=== PATIENT | male | born 1990 | race Caucasian/White ===

== ENCOUNTER 2017-04-06 17:00 | Emergency (ER) | payer SELFPAY ==
[~2017-04-06] VITALS: Ht 177.8 cm; Wt 77.1 kg
[~2017-04-06 17:00] MED LIST: AMOXIL500 MG PO; IBUPROFEN400 MG PO; KEFLEX 500MG.500 MG PO; NAPROXEN SODIU500 MG PO; NORCO 325 MG-51 TAB PO; PHENERGAN25 M3 PO; PREDNISONE 20MG20 MG PO; TYLENOL W/CODEI1 TA2 PO
--- NOTE | 2017-04-06 19:11 | Emergency Room Report ---
History of Present Illness Time Seen by [id number] Presenting Problem in Triage Pt arrived:Walked Presenting Problem:L ELBOW SWELLING AND PAIN, PT REPORTS PAIN IS WORSE WITH MOVEMENT. PT REPORTS PAIN WOKE HIM UP AT 0400 THIS MORNING. Onset of symptoms date/time:04/06/17 or onset unknown for: Treatment Prior to Arrival: [employer] Provided by: Sepsis Risk Assessment: Temp: 98.2 B/P: 131/74 MAP: 105 Pulse: 84 Resp: 20 Recent fever? N Clinical Suspician of Infection? N Mental Status: 1 - Regular (Normal Baseline) Sepsis Risk:Low Sepsis Risk Have you (or family members/close friends) recently traveled outside the [place]? N If Yes, where/when: Have you had exposure to infectious disease within the past month? N TB? Other? Specify: Fell one week ago, landed on left elbow, reports pus draining from wound with fever in the past 24 hours with swelling to elbow. No weakness or numbness. ALLERGIES Coded Allergies: No Known Allergies (03/10/16) Home Medications Reported Medications No Known Home Medications History Medical History General CAD? No Angina: No ME: No Hypertension? No Hyperlipidemia? No CHF? No DVT? No PE? No COPD? No Asthma? No Anemia? No GERD? No Gastric ulcers? No GI Bleed? No Hernia? No Thyroid Problems? No Hypothyroidism? No CVA? No Seizures? No Diabetes? No Renal Insuffiency? No End Stage Renal Disease? No UTI? No Stones? No GB Disease: No Nephritic Syndrome? No Asplenia? No Hepatitis? No Sickle Cell Disease? No Arthritis? No Migraines? No Cataracts? No Glaucoma? No MRSA? No HIV? No TB? No Anxiety? No Depression? No Cancer? No More? No Immunization Hx DT/Tetanus 5-10 Years Ago Surgical Hx Previous Surgery?N Social History Smoking Hx Smoker: Current Every Day Smoker Tobacco: Yes Type Cigarettes Packs/day < 1 Pack Alcohol Alcohol: No Review of Systems All Other Systems Reviewed and Negative Constitutional fever Musculoskeletal see HPI Skin see HPI Physical Exam Vital Signs Vital Signs Date Time Temp Pulse Resp B/P Pulse O2 O2 Flow FiO2 Ox Delivery Rate 04/069 16 04/06 1823 98.2 84 20 131/74 95 04/06 1750 98.2 80 20 125/79 95 04/06 1706 98.4 85 18 161/78 98 General Appearance normal appearance, WD/WN, no apparent distress Eye Exam - bilateral eye normal exam, bilateral eye PERRL, bilateral eye EOMI Neck normal inspection, non-tender, supple, full range of motion Respiratory Status No: respiratory distress. Cardiovascular normal peripheral pulses Extremities pain and warmth, left elbow, no fluctuance, no drainage, but tender. No subcutaneous air. FROM elbow, shoulder, wrist, digits. Well perfused limb, no ropiness, no mojgan abscess, no redness. Neurologic alert, normal exam, no motor/sensory deficits, oriented x 3 Medical Decision Making LABS/Meds/Orders Pt receiving controlled substance in ED? No Results/Orders Laboratory Tests 04/06/171920: Sodium 139, Potassium 3.5, Chloride 103, Carbon Dioxide 28, BUN 17, Creatinine 0.9, Estimated Creat Clear 138, Estimated GFR (MDRD) 104, Glucose 101, Calcium 9.0, WBC 9.0, RBC 4.59 L, Hgb 14.0 L, Hct 41.1 L, MCV 89.6, RDW 13.7, Plt Count 225, MPV 7.6, Gran % 64.3, Gran # 5.8, Lymphocytes % 26.4, Monocytes % 7.1 , Eosinophils % 1.9, Basophils % 0.3, Lymphocytes # 2.4, Monocytes # 0.6, Eosinophils # 0.2, Basophils # 0.0, PUBS MCHC 34.0, MCH 30.5 Current Medication Orders Sig/Laquita Start time Last Medication Dose Route Stop Time Status Admin Ketorolac 0 .STK-MED ONE 04/06 2035 DC Tromethamine .ROUTE Ketorolac 30 MG ONCE ONE 04/06 2030 DC 04/06 Tromethamine IV 04/06 Ketorolac 0 .STK-MED ONE 04/06 2025 DC Tromethamine .ROUTE Cefazolin Sodium 0 .STK-MED ONE 04/06 1933 DC .ROUTE Sodium Chloride 100 ML .STK-MED ONE 04/06 1933 DC IV Cefazolin Sodium 1 GM ONCE ONE 04/06 1930 DC 04/06 Sodium Chloride 50 ML IV 04/06 Lidocaine/Epinephrine 0 .STK-MED ONE 04/06 1927 DC .ROUTE Sodium Chloride 10 ML PRN PRN 04/06 1915 AC IV 04/07 1908 Orders Procedure Date/time Status IV SALINE LOCK 04/06 1908 Active CULTURE, BLOOD 04/06 1908 Active C-REACTIVE PROTEIN 04/06 1908 Complete CBC WITH AUTO DIFF 04/06 1908 Complete BASIC METABOLIC PROFILE 04/06 1908 Complete ELBOW-LT-3 VIEWS 04/06 1738 Active XRAY/CT/US XRAY/CT/US XRAY elbow XR interpretation by reviewed by me Xray Results normal/NAD (STS ? air will d/w ortho) Consult MD Physician Consult Consult/PCP ok to Rx oral abx and f/u with him; consider aspiration; [facility] to read. Time Called 1912 Reason Pt. Condition, Orthopedic eval/care Progress ED Progress Notes Date 04/06/17 Time 2022 Comment Patient consented for joint aspiration understands risks vs. benefits; meanwhile , Dr. Yoon has called back and I relayed [facility] report to him. He is available for consult should drainage prove purulent. Procedures Laceration/Wound Repair Progress Patient consented for elbow joint aspiration; elbow prepped and draped usual sterile fashion and anesthetized epidermis, tissue and joint with Lido 1 per cent with epi, four ml; with joint penetrated with sterile 18 gauge needle; no pus or drainage; additionally, the abraded area was aspirated and no pus was produced. However, there was clear pink tinged fluid from the joint (likely from the Lidocaine) that was placed on the culture swab and sent to lab. Gram stain not indicated as no definitive joint aspirate to send. Departure Departure Time of Disposition 2042 Disposition DC Home or Self Care(routine) Clinical Impression Primary Impression: Swelling of left elbow Condition STABLE Referrals Armando Yoon MD Patient Instructions DI for Elbow Pain Additional Instructions Rx Naproxen, Rx Keflex, Rx Bactrim, recommend soaking in Epsom salts/warm water; close follow up with Dr. Yoon, call for appointment preferably in one to three days for recheck. Watch for fever, streaks up arm, or vomiting and go to closest ER if worse/any concerns. Discharge Counseling Counseled pt/family regarding diagnosis, test results, medications/RX, home care, follow up needs Prescriptions Current Visit Scripts NAPROXEN (NAPROXEN 500MG TAB) 500 MG PO BIDP PRN swelling/pain #20 TAB CEPHALEXIN (Keflex 500MG Capsule) 500 MG PO QID #20 CAP SULFAMETHOXAZOLE W/TRIMETHOPRI (Bactrim Ds Tab) 1 TABLET PO BID #20 TAB ED Critical Care Critical Care No at 2044
[2017-04-06 19:40] LABS: LYMPH # 2.4 K/mm3 (0.7-4.5); LYMPH % 26.4 % (10-50)
[2017-04-06] MEDS ORDERED: BACTRIM DS 8001 TA1 PO (20:46)
[2017-04-06] MEDS ORDERED: KEFLEX 500MG.500 MG PO (20:46)
[2017-04-06] MEDS ORDERED: NAPROXEN SODIU500 MG PO (20:46)
[2017-04-06 20:58] VITALS: BP 128/64
--- NOTE | 2017-04-07 05:58 | RADIOLOGY REPORT PS360 ---
ELBOW-LT-3 VIEWS HISTORY: SWELLING, PAIN ORDERING PHYSICIAN: Tere Viramontes MD PATIENT AGE: 26 years COMPARISON: None FINDINGS: No obvious displaced fracture or dislocation is evident. There is a subtle transverse lucency through the radial head proximally nonspecific but could be due to a nondisplaced fracture. No evidence of displaced fat pad. There is soft tissue swelling along the distal humerus and olecranon posteriorly. No obvious soft tissue gas or radiopaque foreign body IMPRESSION: 1. Possible nondisplaced radial head fracture. This may be confirmed with MRI or CT 2. Soft tissue swelling
== END 2017-04-06 20:59 | disposition home or self-care (01) ==
LOC: ER 17:00
PROVIDERS: Emergency Medicine
PROC: 0R9M3ZX Drainage of Left Elbow Joint, Percutaneous Approach, Diagnostic (ICD-10-PCS; principal; 2017-04-06)
DX: M25.522 Pain in left elbow (principal)

== ENCOUNTER → 2017-04-12 | Outpatient (CLI) | payer SELFPAY ==
[~2017-04-12] MED LIST changes: +BACTRIM DS 8001 TA1 PO
== END ==
LOC: LAB 11:37
DX: S51.002A Unspecified open wound of left elbow, initial encounter (principal)